=== PATIENT | male | born 1950 | race Caucasian/White ===

== ENCOUNTER → 2017-07-16 | Outpatient (REF) | payer MEDICARE, BC ==
[2017-07-16 18:51] LABS: HEMATOCRIT 43.1 % (42.0-52.0); HEMOGLOBIN 13.9 g/dl (13.5-17.5); MEAN CORPUSCULAR HEMOGLOBIN 34.7 pg (27.0-33.0); MEAN CORPUSCULAR HGB CONC 32.3 g/dl (32.0-36.5); MEAN CORPUSCULAR VOLUME 107.5 fl (80.0-96.0); PLATELET COUNT, AUTOMATED 283 10^3/uL (150-450); RED BLOOD COUNT 4.01 10^6/uL (4.30-6.10); RED CELL DISTRIBUTION WIDTH 14.8 % (11.5-14.5); WHITE BLOOD COUNT 6.2 10^3/uL (4.0-10.0)
[2017-07-16 19:00] LABS: VITAMIN B12 LEVEL 475 PG/ML
[2017-07-16 19:17] LABS: ALBUMIN 3.9 GM/DL (3.2-5.2); ALBUMIN/GLOBULIN RATIO 1.34 (1.00-1.93); ALKALINE PHOSPHATASE 62 U/L (45-117); ALT/SGPT 29 U/L (12-78); ANION GAP 9 MEQ/L (8-16); AST/SGOT 9 U/L (7-37); BILIRUBIN,TOTAL 0.5 MG/DL (0.2-1.0); BLOOD UREA NITROGEN 17 MG/DL (7-18); CALCIUM LEVEL 9.3 MG/DL (8.8-10.2); CARBON DIOXIDE LEVEL 27 MEQ/L (21-32); CHLORIDE LEVEL 105 MEQ/L (98-107); CREATININE FOR GFR 1.05 MG/DL (0.70-1.30); GLOMERULAR FILTRATION RATE > 60.0 (>49); GLUCOSE, FASTING 149 MG/DL (70-100); POTASSIUM SERUM 4.3 MEQ/L (3.5-5.1); RHEUMATOID FACTOR QUANT < 10.0 IU/ML (<15.0); SODIUM LEVEL 141 MEQ/L (136-145); TOTAL PROTEIN 6.8 GM/DL (6.4-8.2)
[2017-07-16 19:30] LABS: ESTIMATED AVERAGE GLUCOSE 169 MG/DL (60-110); HEMOGLOBIN A1c 7.5 %
[2017-07-16 19:35] LABS: ADD MANUAL DIFFER YES; DIFF SLIDE NUMBER 310; POS COUNT POS FLAG; POSITIVE MORPH POS FLAG
[2017-07-16 20:55] LABS: ATYPICAL LYMPH 5 % (0-5); BASOPHILS 3 % (0-4); LYMPHOCYTES 16 % (16-52); METAMYELOCYTES 3 % (0-0); MONOCYTES 7 % (0-8); MYELOCYTES 2 % (0-0); NEUTROPHILS 62 % (35-75); PLATELET ESTIMATE NORMAL (NORMAL); PROMYELOCYTES 2 % (0-0)
[2017-07-16 21:21] LABS: ERYTHROCYTE SEDIMENTATION RATE 58 mm/hr (0-20)
[2017-07-17 13:21] LABS: ALBUMIN 4.16 GM/DL (3.29-5.55); ALBUMIN % 61.2 % (55.8-66.1); ALPHA-1-GLOBULIN % 5.8 % (2.9-4.9); ALPHA-1-GLOBULINS 0.39 GM/DL (0.17-0.41); ALPHA-2-GLOBULINS 1.22 GM/DL (0.42-0.99); BETA-1-GLOBULINS 0.44 GM/DL (0.28-0.60); BETA-1-GLOBULINS % 6.5 % (4.7-7.2); BETA-2-GLOBULINS 0.34 GM/DL (0.19-0.55); GAMMA GLOBULIN % 3.5 % (11.1-18.8); GAMMA GLOBULINS 0.24 GM/DL (0.65-1.58)
[2017-07-20 14:56] LABS: CERULOPLASMIN 26.3 mg/dL (16.0-31.0); VITAMIN B1 LEVEL WHOLE BLOOD 214.5 nmol/L (66.5-200.0); VITAMIN B6,PYRIDOXAL PHOSPHATE 9.8 ug/L (5.3-46.7)
[2017-07-22 00:07] LABS: ANCA-ATYPICAL <1:20 titer (Neg:<1:20); ANTI DOUBLE STRAND-DNA AB <1 IU/mL (0-9); ANTINUCLEAR ANTIBODIES DIRECT Negative (Negative); COPPER PLASMA 96 ug/dL (72-166); CYTOPLASMIC NEUTROP AB ANCA-C <1:20 titer (Neg:<1:20); LEAD BLOOD ADULT 2 ug/dL (0-19); MERCURY LEVEL None Detected ug/L (0.0-14.9); PERINUCLEAR AB ANCA-P <1:20 titer (Neg:<1:20); SJOGREN'S ANTI SS-A <0.2 AI (0.0-0.9); SJOGREN'S ANTI SS-B <0.2 AI (0.0-0.9)
[2017-07-22 10:33] LABS: PTT LUPUS TYPE ANTICOAG SCREEN 2.9 (0-1.2)
[2017-07-22 10:46] LABS: NORMALIZED RATIO 1.45 (0.00-1.20)
== END ==
LOC: M LABNEURO 12:25
DX: G62.9 Polyneuropathy, unspecified (principal)
CPT/HCPCS: 82525

== ENCOUNTER → 2017-09-18 | Outpatient (REF) | payer MEDICARE, BC ==
[2017-09-18 18:05] LABS: TOTAL PROTEIN,RANDOM URINE 9.3 MG/DL (0.0-12.0)
== END ==
LOC: M LABNEURO 14:44
DX: R39.9 Unspecified symptoms and signs involving the genitourinary system (principal)
CPT/HCPCS: 36415

== ENCOUNTER → 2019-06-30 | Outpatient (REF) | payer BC, MEDICARE ==
[2019-06-30 17:51] LABS: APPEARANCE, URINE CLEAR (CLEAR); BACTERIA, URINE AUTO NEGATIVE (NEGATIVE); BILIRUBIN, URINE AUTO NEGATIVE (NEGATIVE); BLOOD, URINE BLOOD NEGATIVE (NEGATIVE); COLOR, URINE YELLOW (YELLOW); GLUCOSE, URINE (UA) AUTO NEGATIVE (NEGATIVE); KETONE, URINE AUTO NEGATIVE (NEGATIVE); LEUKOCYTE ESTERASE, URINE AUTO NEGATIVE (NEGATIVE); NITRITE, URINE AUTO NEGATIVE (NEGATIVE); PROTEIN, URINE AUTO NEGATIVE (NEGATIVE); RBC, URINE AUTO 0 /HPF (0-3); SPECIFIC GRAVITY URINE AUTO 1.004 (1.002-1.035); SQUAMOUS EPITHELIAL CELL UR AU 0 /HPF (0-6); UROBILINOGEN, URINE AUTO 0.2 mg/dL (0.0-2.0); WBC, URINE AUTO 0 /HPF (0-3)
== END ==
LOC: M SMT 16:56
PROVIDERS: ATTEND Nurse Practitioner Women's Health
DX: R97.20 Elevated prostate specific antigen [PSA] (principal)

== ENCOUNTER → 2019-07-20 | Outpatient (CLI) | payer BC, MEDICARE ==
--- NOTE | 2019-07-20 13:14 | REPPI ---
TRANSRECTAL ULTRASOUND PROSTATE, WITH ULTRASOUND GUIDANCE FOR PROSTATE BIOPSY: Transrectal prostate ultrasound performed. Prostate measures 4.3 x 3.2 x 4.7 cm for a total volume of 33.4 mL. Echotexture is heterogeneous. Echogenic calcifications are seen. Small hypoechoic area in the right posterior apex measures 4.0 x 2.0 mm. Seminal vesicles appear symmetrical. Ultrasound guidance was provided for Dr. Parker who performed ultrasound guided biopsy of the prostate. Electronically Signed by Regan Velez MD 07/20/2019 03:30 P
== END ==
LOC: M SMT PRO 11:00
PROVIDERS: ATTEND Urology
DX: R97.20 Elevated prostate specific antigen [PSA] (principal)
CPT/HCPCS: 76872; 76942; G0416